=== PATIENT | female | born 1985 | race Caucasian/White ===

== ENCOUNTER 2018-12-31 20:09 | Emergency (ER) | payer MEDICAID, OTHER ==
[~2018-12-31] VITALS: Ht 162.6 cm; Wt 81.6 kg
--- NOTE | 2018-12-31 21:26 | Diagnostic Imaging Report ---
INDICATION: Right ankle injury. Pain. FINDINGS: Three views of the right ankle show no fracture, dislocation or other acute abnormality. IMPRESSION: No acute bony abnormality is seen. Dictated by: Dictated on workstation # [id number]
--- NOTE | 2018-12-31 21:29 | ED Lower Extremity ---
General Chief Complaint: Lower Extremity Stated Complaint: RT ANKLE Nursing Triage Note: Patient states that she went to jump onto a rock and fell. Patient is complaining of right ankle pain. States that she felt her ankle pop and is unable to put any weight on it at all. Nursing Sepsis Screen: No Definite Risk Source: patient History of Present Illness Date Seen by Provider: Dec 31, 2018 Time Seen by Provider: 21:29 Initial Comments 33-year-old female presents to the emergency department with her daughter. She states that she was working on a rock patio when trying to get a rock to have settled into place. She was on top of a rock and fell off of it. In the process she rolled her right ankle. She felt a pop and has had pain to the point that she could not bear weight. She already has some nerve damage in neuropathy in that foot. She has not taken anything for the pain. She came to the emergency department to have it evaluated. 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 She was concerned that she has a fracture to the foot. The pain is more severe whenever she tries to stand on it and bear weight. She also has severe pain with flexion and inversion and eversion of foot and ankle. There is mild swelling. There is no obvious bruising. Allergies and Home Medications Allergies Coded Allergies: Penicillins (Verified Allergy, Intermediate, Hives, 12/31/18) Home Medications Ketorolac Tromethamine 10 Mg Tablet, 10 MG PO Q6H PRN for PAIN-SEVERE Prescribed by: ANASTASIYA GARCIA on 12/31/18 [id number] Patient Home Medication List Home Medication List Reviewed: Yes Review of Systems Constitutional: No chills, No fever EENTM: no symptoms reported Respiratory: no symptoms reported Cardiovascular: no symptoms reported Gastrointestinal: no symptoms reported Genitourinary: no symptoms reported Musculoskeletal: see HPI Skin: see HPI Psychiatric/Neurological: Paresthesia (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.) Past Ewtfwnz-Mzualf-Ydvmrt Hx Past Med/Social Hx: Reviewed Nursing Past Med/Soc Hx Patient Social History Alcohol Use: Denies Use Recreational Drug Use: No Smoking Status: Current Everyday Smoker Recent Foreign Travel: No Contact w/Someone Who Travel: No Recent Infectious Disease Expo: No Physical Abuse: No Sexual Abuse: No Mistreated: No Fear: No Seasonal Allergies Seasonal Allergies: No Past Medical History Surgeries: Yes (Craniotomy) Respiratory: No Cardiac: No Neurological: No Genitourinary: No Gastrointestinal: No Musculoskeletal: No Endocrine: Yes Hypothyroidsim HEENT: No Cancer: No Psychosocial: No Integumentary: No Physical Exam Vital Signs Vital Signs - First Documented 12/31/18 20:55 Temp 97.9 Pulse 88 Resp 18 B/P (MAP) 126/50 (75) Pulse Ox 97 O2 Delivery Room Air Capillary Refill : Less Than 3 Seconds Height, Weight, BMI Height: 5'4.00" Weight: 180lbs. 0oz. 81.050692jh; BMI Method:Stated General Appearance: WD/WN, mild distress Cardiovascular: normal peripheral pulses Knees: right knee non-tender, right knee normal inspection, right knee normal range of motion, right knee no evidence of injury Ankles: right ankle pain, right ankle soft tissue tenderness (tender to the lateral portion of the ankle and top of the foot.), right ankle swelling (mild) Neurologic/Psychiatric: alert, normal mood/affect, oriented x 3 Skin: normal color, warm/dry Progress/Results/Core Measures Results/Orders My Orders Orders - ANASTASIYA GARCIA MD Ankle 3 View Right (12/31/18 20:56) Ketorolac Injection (Toradol Injection) (12/31/18 22:05) Crutches (12/31/18 22:05) Vital Signs/I&O 12/31/18 12/31/18 20:55 22:36 Temp 97.9 97.9 Pulse 88 88 Resp 18 18 B/P (MAP) 126/50 (75) 126/50 (75) Pulse Ox 97 97 O2 Delivery Room Air Blood Pressure Mean: 75 Progress Progress Note : Progress Note X-rays were obtained of the right ankle to evaluate for injury based off of her complaint to the triage nurse. Based on my review of the 3 view films of her right ankle and reviewing the report from the radiologist she had no acute fracture or dislocation. On exam she had no tenderness on palpation of he proximal fibula. Counseled that I could perform a CT scan of her foot and ankle with her having continued pain with bearing weight. This would help to look for an occult fracture her that I be difficult to see with her foot and ankle bones laying on top of each other. She declined would rather just try the patient, crutches for weightbearing as tolerated, ice and elevation. She will try Toradol for her pain she had tolerated this when she had surgery for her Chiari I malformation. Advised to check back with her primary or orthopedics especially if she wasn't improving within 5-7 days. He may need either repeat the x-rays were performed higher level imaging to evaluate for possible fracture or soft tissue injury such as a ligamentous or tendon the might be injured. Diagnostic Imaging Diagonstic Imaging: Xray Plain Films/CT/US/NM/MRI: ankle Comments NAME: KATHY JAMES [facility] REC#: [id number] PT STATUS: REG ER : 1985 PHYSICIAN: ANASTASIYA GARCIA MD ADMIT DATE: 12/31/18/ER FS Signed Date of Exam:12/31/18 ANKLE 3 VIEW RIGHT INDICATION: Right ankle injury. Pain. FINDINGS: Three views of the right ankle show no fracture, dislocation or other acute abnormality. IMPRESSION: No acute bony abnormality is seen. Dictated by: Dictated on workstation # [id number] Dict: 12/31/182122 Trans: 12/31/182125 [facility] [id number] Interpreted by: EDDIE JACKSON MD Electronically signed by: EDDIE JACKSON MD 12/31/182125 Departure Impression Primary Impression: Right foot sprain Qualified Codes: S93.601A - Unspecified sprain of right foot, initial encounter Additional Impression: Right foot pain Disposition: HOME, SELF-CARE Condition: Stable Departure-Patient Inst. Decision time for Depature: 22:25 Referrals: NO,LOCAL PHYSICIAN (PCP) Primary Care Physician Patient Instructions: Foot Sprain (DC), How to Use Crutches Add. Discharge Instructions: Keep your boot on to give your foot support until you follow up with clinic. Use crutches for weight bearing as tolerated. If you are not improving or having continued severe symptoms then check with Orthopedics or your primary provider so you could have additional imaging or testing to look at your ankle and foot. Try to elevate your foot as much as possible to help with pain and swelling. Ice 20-30 minutes every few hours as needed to help with pain and swelling. All discharge instructions reviewed with patient and/or family. Voiced understanding. Scripts Ketorolac Tromethamine (Ketorolac Tromethamine) 10 Mg Tablet 10 MG PO Q6H PRN for PAIN-SEVERE for 5 Days, #20 TAB 0 Refills Prov: ANASTASIYA GARCIA MD 12/31/18 Work/School Note: Work Release Form Date Seen in the Emergency Department: Dec 31, 2018 Return to Work: Jan 02, 2019 Restrictions: No Sports-Until Released Other Restrictions Listed Below: Wear Boot and use Crutches for weight bearing as tolerated x 1 week. Restrictions: Elevate right foot as much as she can to help with pain and swelling ANASTASIYA GARCIA MD Dec 31, 2018 21:29
[2018-12-31] MEDS ORDERED: KETOROLAC 60 MG/2 ML VIAL IM STA (22:05)
[2018-12-31] MEDS ORDERED: KETO10TA PO (22:32)
[2018-12-31 22:36] VITALS: BP 126/50
== END 2018-12-31 22:40 | disposition home or self-care (01) ==
LOC: ER FS 20:11
DX: S93.601A Unspecified sprain of right foot, initial encounter (principal); E03.9 Hypothyroidism, unspecified; F17.200 Nicotine dependence, unspecified, uncomplicated; Z88.0 Allergy status to penicillin; X50.1XXA Overexertion from prolonged static or awkward postures, initial encounter
CPT/HCPCS: 73610